=== PATIENT | female | born 1955 | race Native Hawaiian/Other Pacific Islander ===

== ENCOUNTER 2021-01-02 07:48 | Outpatient (CLI) | payer OTHER | END 2021-01-02 22:34 | disposition home or self-care (01) | LOC: CT 07:48 | PROVIDERS: ATTEND Internal Medicine | DX: R10.30 Lower abdominal pain, unspecified (principal) ==

== ENCOUNTER 2021-09-20 08:37 | Outpatient (CLI) | payer OTHER, MEDICARE ==
[2021-09-20 09:11] LABS: PLATELET COUNT 301 K/uL (152-353)
== END 2021-09-20 19:03 | disposition home or self-care (01) ==
LOC: CT 08:37 → LABW 08:37 → CT 09:30 → LABW 19:03
PROVIDERS: ATTEND Internal Medicine
DX: R35.0 Frequency of micturition (principal); R10.30 Lower abdominal pain, unspecified
CPT/HCPCS: 36415; 80053; 81002; 82150; 83690; 85027; Q9963

== ENCOUNTER 2022-03-26 15:08 | Outpatient (CLI) | payer OTHER, MEDICARE ==
[2022-03-26 15:41] LABS: PLATELET COUNT 296 K/uL (152-353)
== END 2022-03-26 19:57 | disposition home or self-care (01) ==
LOC: LAB 15:08
PROVIDERS: ATTEND Internal Medicine
DX: D64.89 Other specified anemias (principal); Z79.899 Other long term (current) drug therapy
CPT/HCPCS: 80053; 80061; 81002; 82306; 82607; 84439; 84443; 85027

== ENCOUNTER 2022-06-30 12:19 | Outpatient (CLI) | payer OTHER, MEDICARE ==
[2022-06-30 12:31] LABS: PLATELET COUNT 274 K/uL (152-353)
== END 2022-06-30 20:42 | disposition home or self-care (01) ==
LOC: LAB 12:19
PROVIDERS: ATTEND Internal Medicine
DX: D64.89 Other specified anemias (principal); E78.00 Pure hypercholesterolemia, unspecified
CPT/HCPCS: 80053; 80061; 85027

== ENCOUNTER 2022-09-30 14:34 | Outpatient (CLI) | payer OTHER, MEDICARE ==
[2022-09-30 14:40] LABS: PLATELET COUNT 315 K/uL (152-353)
[2022-09-30 14:52] LABS: POTASSIUM 4.1 mmol/L (3.6-5.2)
== END 2022-09-30 20:34 | disposition home or self-care (01) ==
LOC: LAB 14:34
PROVIDERS: ATTEND Internal Medicine
DX: E78.00 Pure hypercholesterolemia, unspecified (principal); D64.89 Other specified anemias
CPT/HCPCS: 80053; 80061; 85027

== ENCOUNTER 2022-10-10 08:53 | Outpatient (CLI) | payer OTHER, MEDICARE | END 2022-10-10 19:14 | disposition home or self-care (01) | LOC: CT 08:53 | PROVIDERS: ATTEND Internal Medicine | DX: R31.9 Hematuria, unspecified (principal) ==

== ENCOUNTER 2022-12-15 07:53 | Outpatient (CLI) | payer OTHER, MEDICARE | END 2022-12-15 19:12 | disposition home or self-care (01) | LOC: CT 07:53 | PROVIDERS: ATTEND Internal Medicine Sleep Medicine | DX: R91.1 Solitary pulmonary nodule (principal) ==

== ENCOUNTER → 2023-03-30 | Outpatient (CLI) | payer OTHER, MEDICARE ==
[2023-03-30 14:14] LABS: PLATELET COUNT 285 K/uL (152-353)
== END ==
LOC: LAB 12:05
PROVIDERS: ATTEND Internal Medicine
DX: E78.00 Pure hypercholesterolemia, unspecified (principal); Z85.3 Personal history of malignant neoplasm of breast; D51.0 Vitamin B12 deficiency anemia due to intrinsic factor deficiency; E55.9 Vitamin D deficiency, unspecified; Z79.899 Other long term (current) drug therapy
CPT/HCPCS: 80053; 80061; 81002; 82306; 82607; 84439; 84443; 85027